=== PATIENT | female | born 1975 | race Hispanic/Latino ===

== ENCOUNTER 2017-05-15 15:23 | Emergency (ER) | payer MEDICAID ==
[2017-05-15 15:29] VITALS: BP 148/90
[2017-05-15 16:04] LABS: Basophils % (Auto) 0.3 % (0.0-1.8); Hematocrit 30.6 % (30.3-42.9); Hemoglobin 9.3 gm/dl (10.1-14.3); Mean Corpuscular HGB Conc 30 % (30-34); Platelet Count 264 K/mm3 (140-440); Red Blood Count 4.62 M/mm3 (3.65-5.03); Red Cell Distribution Width 18.5 % (13.2-15.2); White Blood Count 9.8 K/mm3 (4.5-11.0)
[2017-05-15 16:06] LABS: Mean Corpuscular Hemoglobin 20 pg (28-32); Mean Corpuscular Volume 66 fl (79-97)
[2017-05-15 16:29] LABS: Anion Gap 16 mmol/L; BUN/Creatinine Ratio 16.66; Blood Urea Nitrogen 10 mg/dL (7-17); Calcium 8.9 mg/dL (8.4-10.2); Carbon Dioxide 24 mmol/L (22-30); Chloride 103.8 mmol/L (98-107); Glucose 106 mg/dL (65-100); Potassium 3.7 mmol/L (3.6-5.0); Sodium 140 mmol/L (137-145)
== END 2017-05-15 15:31 | disposition left against medical advice (07) ==
LOC: ED 15:23
DX: R04.2 Hemoptysis (principal); Z53.21 Procedure and treatment not carried out due to patient leaving prior to being seen by health care provider
CPT/HCPCS: 36415; 80048; 85025